=== PATIENT | male | born 1980 | race Caucasian/White ===

== ENCOUNTER 2021-09-25 16:12 | Emergency (ER) | payer SELFPAY ==
[2021-09-25] MEDS ORDERED: Acetaminophen 500 MG TAB ONE (16:53)
== END 2021-09-25 17:40 | disposition home or self-care (01) ==
LOC: BURERS 16:12
DX: S92.354A Nondisplaced fracture of fifth metatarsal bone, right foot, initial encounter for closed fracture (principal); E10.9 Type 1 diabetes mellitus without complications; W10.9XXA Fall (on) (from) unspecified stairs and steps, initial encounter; Y92.009 Unspecified place in unspecified non-institutional (private) residence as the place of occurrence of the external cause; Z79.4 Long term (current) use of insulin

== ENCOUNTER 2022-04-29 22:54 | Emergency (ER) | payer OTHER, SELFPAY ==
[2022-04-29] MEDS ORDERED: Lidocaine 1% PF 5 ML VIAL ONE ×2 (23:15→23:39)
[2022-04-30] MEDS ORDERED: Lidocaine 1% PF 5 ML VIAL ONE (00:01)
[2022-04-30] MEDS ORDERED: Bacitracin 1 PK ONE (00:31)
[2022-04-30] MEDS ORDERED: Amoxicillin/Potassium Clav 875 MG TAB ONE (00:35)
== END 2022-04-30 00:56 | disposition home or self-care (01) ==
LOC: BURERS 22:54
DX: S62.502B Fracture of unspecified phalanx of left thumb, initial encounter for open fracture (principal); E10.9 Type 1 diabetes mellitus without complications; W54.0XXA Bitten by dog, initial encounter
CPT/HCPCS: 11760; 12031

== ENCOUNTER 2022-05-11 12:03 | Emergency (ER) | payer SELFPAY | END 2022-05-11 12:45 | disposition home or self-care (01) | LOC: BURERS 12:03 | DX: S61.412D Laceration without foreign body of left hand, subsequent encounter (principal); E10.9 Type 1 diabetes mellitus without complications; Z79.4 Long term (current) use of insulin ==